=== PATIENT | female | born 1940 | race Caucasian/White ===

== ENCOUNTER 2019-11-18 17:10 | Inpatient (IN) | payer MEDICARE ==
[~2019-11-18] VITALS: Ht 149.9 cm; Wt 49.9 kg
[~2019-11-18 17:10] MED LIST: AMIO100T4 PO; ASPI-1158 PO; FURO-152 PO; HYDR-4009 MT; METO200T48 PO; OMEP20CA14 PO; SIMV10TA97 PO; WARF-67 PO; WARF4TAB71 PO
[2019-11-18 18:14] VITALS: BP 123/63
[2019-11-18] MEDS ORDERED: DEXTROSE 50% WATER 50ML SYRINGE IV PRN (18:15)
[2019-11-18] MEDS ORDERED: HYDROCODONE/ACETAMINOPHEN 5/325MG TABLET PO PRN (18:15)
[2019-11-18] MEDS ORDERED: LACTULOSE 20G/30ML UDC PO PRN (18:15)
[2019-11-18 18:59] VITALS: BP 123/63
[2019-11-18] MEDS ORDERED: WARFARIN SODIUM 4MG TABLET PO SCH (19:30)
[2019-11-18 20:00] VITALS: BP 132/68
[2019-11-18] MEDS: HYDROCODONE/APAP 7.5/325MG 1 TAB TABLET PO PRN (20:17)
[2019-11-18] MEDS: BLOOD SUGAR DIAGNOSTIC STRIP TEST SCH (21:22)
[2019-11-18] MEDS: SOTALOL HCL 80MG TABLET PO SCH (21:23)
[2019-11-18] MEDS: INSULIN LISPRO 100 UNITS/ML SUBCUT SCH (22:00)
[2019-11-18] MEDS: IPRATROPIUM/ALBUTEROL 0.5-3(2.5)MG/3ML NEB HHN SCH (23:56)
[2019-11-19] MEDS: IPRATROPIUM/ALBUTEROL 0.5-3(2.5)MG/3ML NEB HHN SCH ×5 (03:41→20:00)
[2019-11-19] MEDS: BLOOD SUGAR DIAGNOSTIC STRIP TEST SCH ×2 (06:53→11:26)
[2019-11-19] MEDS: INSULIN LISPRO 100 UNITS/ML SUBCUT SCH ×2 (07:00→12:03)
[2019-11-19 08:00] VITALS: BP 117/62
[2019-11-19] MEDS: LACTULOSE 20G/30ML UDC PO SCH (08:30)
[2019-11-19] MEDS: ENOXAPARIN 30MG/0.3ML SYR SUBCUT SCH ×2 (08:31→21:38)
[2019-11-19] MEDS: DOCUSATE SODIUM 250MG CAPSULE PO SCH (08:32)
[2019-11-19] MEDS: HYDROCODONE/APAP 7.5/325MG 1 TAB TABLET PO PRN ×2 (08:32→18:52)
[2019-11-19] MEDS: SOTALOL HCL 80MG TABLET PO SCH ×2 (08:32→21:27)
[2019-11-19] MEDS: FAMOTIDINE 20MG TABLET PO SCH (08:33)
[2019-11-19] MEDS: LIDOCAINE 5% PATCH TOP SCH (08:34)
[2019-11-19 20:00] VITALS: BP 105/80
[2019-11-20] MEDS: HYDROCODONE/APAP 7.5/325MG 1 TAB TABLET PO PRN ×2 (06:15→14:31)
[2019-11-20 07:00] VITALS: BP 140/68
[2019-11-20] MEDS: IPRATROPIUM/ALBUTEROL 0.5-3(2.5)MG/3ML NEB HHN SCH ×3 (07:39→16:00)
[2019-11-20 08:12] LABS: BASOPHILS % 1.3 % (0.0-2.0); HEMATOCRIT. 36.7 % (36.0-48.0); LYMPHOCYTES % 7.5 % (20.0-50.0); MEAN CORPUSCULAR HEMOGLOBIN 28.1 pg (28.0-32.0); MEAN CORPUSCULAR VOLUME 85.8 fL (81.0-99.0); MEAN PLATELET VOLUME 8.6 fl (7.4-10.4); MONOCYTES % 10.9 % (2.0-8.0); NEUTROPHILS % 77.3 % (40.0-76.0); PLATELET 294 x1000/uL (130-400); RED BLOOD CELL COUNT 4.28 mill/uL (4.2-5.4); RED CELL DISTRIBUTION WIDTH 15.4 % (11.6-14.6)
[2019-11-20 08:12] LABS: INR 1.8; PROTHROMBIN TIME 19.6 sec (9.6-11.0)
[2019-11-20] MEDS: SOTALOL HCL 80MG TABLET PO SCH ×2 (08:16→21:28)
[2019-11-20] MEDS: DOCUSATE SODIUM 250MG CAPSULE PO SCH (08:16)
[2019-11-20] MEDS: FAMOTIDINE 20MG TABLET PO SCH (08:17)
[2019-11-20] MEDS: ENOXAPARIN 30MG/0.3ML SYR SUBCUT SCH ×2 (08:17→21:35)
[2019-11-20] MEDS: LACTULOSE 20G/30ML UDC PO SCH (08:18)
[2019-11-20] MEDS: LIDOCAINE 5% PATCH TOP SCH (08:23)
[2019-11-20 08:25] LABS: CHLORIDE 108 mEq/L (98-107)
[2019-11-20 14:25] VITALS: BP 125/75
[2019-11-20] MEDS ORDERED: WARFARIN SODIUM 4MG TABLET PO NR (18:00)
[2019-11-20 20:00] VITALS: BP 132/69
[2019-11-21] MEDS: IPRATROPIUM/ALBUTEROL 0.5-3(2.5)MG/3ML NEB HHN SCH ×6 (04:00→20:00)
[2019-11-21 08:00] VITALS: BP 124/75
[2019-11-21] MEDS: LACTULOSE 20G/30ML UDC PO SCH (08:05)
[2019-11-21] MEDS: SOTALOL HCL 80MG TABLET PO SCH ×2 (08:06→21:00)
[2019-11-21] MEDS: DOCUSATE SODIUM 250MG CAPSULE PO SCH (08:06)
[2019-11-21] MEDS: FAMOTIDINE 20MG TABLET PO SCH (08:06)
[2019-11-21] MEDS: HYDROCODONE/APAP 7.5/325MG 1 TAB TABLET PO PRN ×2 (08:07→15:49)
[2019-11-21] MEDS: ENOXAPARIN 30MG/0.3ML SYR SUBCUT SCH ×2 (08:07→21:04)
[2019-11-21] MEDS: LIDOCAINE 5% PATCH TOP SCH (08:08)
[2019-11-21 10:02] LABS: INR 1.9; PROTHROMBIN TIME 20.6 sec (9.6-11.0)
[2019-11-21] MEDS: CLONIDINE 0.1MG TABLET PO PRN (17:20)
[2019-11-21] MEDS ORDERED: WARFARIN SODIUM 2.5MG TABLET PO NR (18:00)
[2019-11-21] MEDS ORDERED: WARFARIN SODIUM 4MG TABLET PO NR (18:00)
[2019-11-21 20:00] VITALS: BP 92/43
[2019-11-22] MEDS: IPRATROPIUM/ALBUTEROL 0.5-3(2.5)MG/3ML NEB HHN SCH ×6 (00:15→16:00)
[2019-11-22 07:38] LABS: PROTHROMBIN TIME 21.3 sec (9.6-11.0)
[2019-11-22 08:00] VITALS: BP 119/58
[2019-11-22] MEDS: ACETAMINOPHEN 650MG/20.3ML UDC PO PRN (08:27)
[2019-11-22] MEDS: ENOXAPARIN 30MG/0.3ML SYR SUBCUT SCH ×2 (08:28→21:18)
[2019-11-22] MEDS: LIDOCAINE 5% PATCH TOP SCH (08:29)
[2019-11-22] MEDS: DOCUSATE SODIUM 250MG CAPSULE PO SCH (08:29)
[2019-11-22] MEDS: FAMOTIDINE 20MG TABLET PO SCH (08:29)
[2019-11-22] MEDS: SOTALOL HCL 80MG TABLET PO SCH ×2 (08:29→21:00)
[2019-11-22] MEDS: LACTULOSE 20G/30ML UDC PO SCH (09:00)
[2019-11-22] MEDS: HYDROCODONE/APAP 7.5/325MG 1 TAB TABLET PO PRN ×2 (09:49→21:17)
[2019-11-22] MEDS ORDERED: WARFARIN SODIUM 2.5MG TABLET PO SCH (18:00)
[2019-11-22] MEDS ORDERED: WARFARIN SODIUM 1MG TABLET PO SCH (18:00)
[2019-11-22 19:09] LABS: KETONES URINE NEGATIVE (NEGATIVE); LEUKOCYTE ESTERASE URINE 3+ (NEGATIVE); NITRITE URINE NEGATIVE (NEGATIVE); OCCULT BLOOD URINE 2+ (NEGATIVE); PH URINE 5.5 (4.5-8.0); PROTEIN URINE 2+ (NEGATIVE); SPECIFIC GRAVITY URINE 1.015 (1.005-1.030)
[2019-11-22 19:14] LABS: CLARITY URINE CLOUDY (CLEAR); COLOR URINE YELLOW (YELLOW)
[2019-11-22 20:00] VITALS: BP 102/58
[2019-11-23] MEDS: ONDANSETRON HCL 4MG/2ML INJ IV PRN (04:13)
[2019-11-23 04:14] VITALS: BP 173/88
[2019-11-23] MEDS: ACETAMINOPHEN 650MG/20.3ML UDC PO PRN ×2 (04:14→18:51)
[2019-11-23] MEDS: CLONIDINE 0.1MG TABLET PO PRN (04:14)
[2019-11-23 06:54] LABS: INR 2.3; PROTHROMBIN TIME 24.1 sec (9.6-11.0)
[2019-11-23 07:00] VITALS: BP 78/44
[2019-11-23] MEDS: IPRATROPIUM/ALBUTEROL 0.5-3(2.5)MG/3ML NEB HHN SCH ×2 (07:08→15:10)
[2019-11-23 07:15] VITALS: BP 92/46
[2019-11-23] MEDS: LACTULOSE 20G/30ML UDC PO SCH (09:00)
[2019-11-23] MEDS: SOTALOL HCL 80MG TABLET PO SCH ×2 (09:00→21:06)
[2019-11-23] MEDS: DOCUSATE SODIUM 250MG CAPSULE PO SCH (09:09)
[2019-11-23] MEDS: ENOXAPARIN 30MG/0.3ML SYR SUBCUT SCH ×2 (09:10→21:06)
[2019-11-23] MEDS: FAMOTIDINE 20MG TABLET PO SCH (09:10)
[2019-11-23] MEDS: LIDOCAINE 5% PATCH TOP SCH (09:11)
[2019-11-23 11:00] VITALS: BP 108/52
[2019-11-23] MEDS ORDERED: LEVOFLOXACIN 250MG TABLET PO SCH (11:00)
[2019-11-23] MEDS: HYDROCODONE/APAP 7.5/325MG 1 TAB TABLET PO PRN (11:08)
[2019-11-23] MEDS ORDERED: WARFARIN SODIUM 2.5MG TABLET PO SCH (18:00)
[2019-11-23] MEDS ORDERED: WARFARIN SODIUM 1MG TABLET PO SCH (18:00)
[2019-11-23 20:00] VITALS: BP 126/66
[2019-11-24 06:46] LABS: INR 2.5; PROTHROMBIN TIME 26.3 sec (9.6-11.0)
[2019-11-24 06:49] LABS: HEMATOCRIT. 32.9 % (36.0-48.0); HEMOGLOBIN. 10.7 g/dL (12.0-16.0); MEAN CORPUSCULAR HEMOGLOBIN 27.6 pg (28.0-32.0); MEAN CORPUSCULAR VOLUME 84.9 fL (81.0-99.0); MEAN PLATELET VOLUME 9.3 fl (7.4-10.4); PLATELET 204 x1000/uL (130-400); RED BLOOD CELL COUNT 3.88 mill/uL (4.2-5.4); RED CELL DISTRIBUTION WIDTH 15.7 % (11.6-14.6)
[2019-11-24 08:00] VITALS: BP 101/67
[2019-11-24] MEDS: SOTALOL HCL 80MG TABLET PO SCH ×2 (08:15→21:38)
[2019-11-24] MEDS: LACTULOSE 20G/30ML UDC PO SCH (08:15)
[2019-11-24] MEDS: DOCUSATE SODIUM 250MG CAPSULE PO SCH (08:16)
[2019-11-24] MEDS: ENOXAPARIN 30MG/0.3ML SYR SUBCUT SCH (08:16)
[2019-11-24] MEDS: FAMOTIDINE 20MG TABLET PO SCH (08:16)
[2019-11-24] MEDS: LIDOCAINE 5% PATCH TOP SCH (08:18)
[2019-11-24 08:22] LABS: PLATELET ESTIMATE NORMAL
[2019-11-24 09:15] VITALS: BP 153/111
[2019-11-24] MEDS: HYDROCODONE/APAP 7.5/325MG 1 TAB TABLET PO PRN ×2 (09:29→20:20)
[2019-11-24] MEDS: MEROPENEM 1,000 MG in SODIUM CHLORIDE 0.9% 100 ML IV SCH ×2 (12:55→21:40)
[2019-11-24] MEDS ORDERED: LACTULOSE 20G/30ML UDC PO PRN (16:30)
[2019-11-24] MEDS ORDERED: DOCUSATE SODIUM 250MG CAPSULE PO PRN (16:30)
[2019-11-24] MEDS ORDERED: WARFARIN SODIUM 3MG TABLET PO SCH (18:00)
[2019-11-24 20:00] VITALS: BP 158/84
[2019-11-25] MEDS: MEROPENEM 1,000 MG in SODIUM CHLORIDE 0.9% 100 ML IV SCH ×3 (06:22→21:59)
[2019-11-25 06:45] LABS: HEMATOCRIT. 30.6 % (36.0-48.0); HEMOGLOBIN. 10.3 g/dL (12.0-16.0); MEAN CORPUSCULAR HEMOGLOBIN 28.4 pg (28.0-32.0); MEAN CORPUSCULAR VOLUME 84.6 fL (81.0-99.0); MEAN PLATELET VOLUME 9.4 fl (7.4-10.4); PLATELET 230 x1000/uL (130-400); RED BLOOD CELL COUNT 3.62 mill/uL (4.2-5.4); RED CELL DISTRIBUTION WIDTH 15.8 % (11.6-14.6)
[2019-11-25 06:46] LABS: INR 2.6
[2019-11-25 07:03] LABS: CHLORIDE 105 mEq/L (98-107)
[2019-11-25 08:00] VITALS: BP 129/62
[2019-11-25 09:11] LABS: PLATELET ESTIMATE NORMAL
[2019-11-25] MEDS: LIDOCAINE 5% PATCH TOP SCH (10:33)
[2019-11-25] MEDS: ONDANSETRON HCL 4MG/2ML INJ IV PRN (10:35)
[2019-11-25] MEDS: SOTALOL HCL 80MG TABLET PO SCH ×2 (10:41→21:57)
[2019-11-25] MEDS: FAMOTIDINE 20MG TABLET PO SCH (10:42)
[2019-11-25] MEDS: HYDROCODONE/APAP 7.5/325MG 1 TAB TABLET PO PRN ×2 (11:24→21:59)
[2019-11-25 13:46] LABS: PROTHROMBIN TIME 21.2 sec (9.6-11.0)
[2019-11-25] MEDS ORDERED: WARFARIN SODIUM 3MG TABLET PO SCH (18:00)
[2019-11-25 20:00] VITALS: BP 144/72
[2019-11-26] MEDS: MEROPENEM 1,000 MG in SODIUM CHLORIDE 0.9% 100 ML IV SCH ×3 (06:08→21:39)
[2019-11-26 06:53] LABS: HEMOGLOBIN. 10.2 g/dL (12.0-16.0); MEAN CORPUSCULAR HEMOGLOBIN 27.9 pg (28.0-32.0); MEAN CORPUSCULAR VOLUME 85.2 fL (81.0-99.0); MEAN PLATELET VOLUME 9.8 fl (7.4-10.4); PLATELET 246 x1000/uL (130-400); RED BLOOD CELL COUNT 3.64 mill/uL (4.2-5.4); RED CELL DISTRIBUTION WIDTH 15.8 % (11.6-14.6)
[2019-11-26 07:00] VITALS: BP 120/63
[2019-11-26 07:00] LABS: CHLORIDE 107 mEq/L (98-107)
[2019-11-26 07:06] LABS: INR 1.9; PROTHROMBIN TIME 20.5 sec (9.6-11.0)
[2019-11-26] MEDS: FAMOTIDINE 20MG TABLET PO SCH (08:31)
[2019-11-26] MEDS: SOTALOL HCL 80MG TABLET PO SCH ×2 (08:32→20:48)
[2019-11-26] MEDS: LIDOCAINE 5% PATCH TOP SCH (08:33)
[2019-11-26 08:57] LABS: PLATELET ESTIMATE NORMAL
[2019-11-26 11:55] VITALS: BP 107/50
[2019-11-26 11:59] VITALS: BP 107/50
[2019-11-26] MEDS: HYDROCODONE/APAP 7.5/325MG 1 TAB TABLET PO PRN ×2 (12:01→20:48)
[2019-11-26 13:30] LABS: INR 1.9
[2019-11-26] MEDS ORDERED: WARFARIN SODIUM 4MG TABLET PO NR (18:00)
[2019-11-26 20:00] VITALS: BP 123/47
[2019-11-27] MEDS: MEROPENEM 1,000 MG in SODIUM CHLORIDE 0.9% 100 ML IV SCH (05:04)
[2019-11-27 06:45] LABS: INR 2.4; PROTHROMBIN TIME 25.4 sec (9.6-11.0)
[2019-11-27 08:00] VITALS: BP 103/41
[2019-11-27] MEDS: SOTALOL HCL 80MG TABLET PO SCH ×2 (08:49→20:10)
[2019-11-27] MEDS: LIDOCAINE 5% PATCH TOP SCH (08:49)
[2019-11-27] MEDS: HYDROCODONE/APAP 7.5/325MG 1 TAB TABLET PO PRN ×2 (08:50→20:11)
[2019-11-27] MEDS: FAMOTIDINE 20MG TABLET PO SCH (09:00)
[2019-11-27] MEDS: MEROPENEM-0.9% SODIUM CHLORIDE 50 ML IV SCH ×2 (14:48→21:53)
[2019-11-27] MEDS ORDERED: WARFARIN SODIUM 1MG TABLET PO SCH (18:00)
[2019-11-27] MEDS ORDERED: WARFARIN SODIUM 2.5MG TABLET PO SCH (18:00)
[2019-11-27 20:00] VITALS: BP 133/78
[2019-11-28] MEDS: MEROPENEM-0.9% SODIUM CHLORIDE 50 ML IV SCH ×3 (06:31→21:35)
[2019-11-28] MEDS: SOTALOL HCL 80MG TABLET PO SCH ×2 (08:02→21:35)
[2019-11-28] MEDS: LIDOCAINE 5% PATCH TOP SCH (08:02)
[2019-11-28] MEDS: HYDROCODONE/APAP 7.5/325MG 1 TAB TABLET PO PRN ×2 (08:03→13:52)
[2019-11-28 08:19] VITALS: BP 114/62
[2019-11-28] MEDS ORDERED: FAMOTIDINE 40MG TABLET PO SCH ×2 (09:00→21:45)
[2019-11-28 09:04] LABS: BASOPHILS % 0.5 % (0.0-2.0); EOSINOPHILS % 2.4 % (0.0-5.0); HEMATOCRIT. 34.2 % (36.0-48.0); HEMOGLOBIN. 11.3 g/dL (12.0-16.0); LYMPHOCYTES % 7.7 % (20.0-50.0); MEAN CORPUSCULAR HEMOGLOBIN 28.2 pg (28.0-32.0); MEAN CORPUSCULAR VOLUME 85.5 fL (81.0-99.0); MEAN PLATELET VOLUME 9.1 fl (7.4-10.4); MONOCYTES % 10.5 % (2.0-8.0); NEUTROPHILS % 78.9 % (40.0-76.0); PLATELET 317 x1000/uL (130-400); RED BLOOD CELL COUNT 3.99 mill/uL (4.2-5.4)
[2019-11-28 09:10] LABS: INR 2.4; PROTHROMBIN TIME 25.5 sec (9.6-11.0)
[2019-11-28 09:14] LABS: CHLORIDE 103 mEq/L (98-107)
[2019-11-28] MEDS: ACYCLOVIR 5% OINTMENT TOP SCH ×2 (13:36→17:00)
[2019-11-28] MEDS ORDERED: WARFARIN SODIUM 1MG TABLET PO SCH (18:00)
[2019-11-28] MEDS ORDERED: WARFARIN SODIUM 2.5MG TABLET PO SCH (18:00)
[2019-11-28 20:00] VITALS: BP 119/66
[2019-11-28] MEDS ORDERED: FAMOTIDINE 20MG TABLET PO ONE (21:00)
[2019-11-29] MEDS: MEROPENEM-0.9% SODIUM CHLORIDE 50 ML IV SCH ×3 (05:45→22:06)
[2019-11-29 07:19] LABS: INR 2.4; PROTHROMBIN TIME 25.2 sec (9.6-11.0)
[2019-11-29] MEDS: FAMOTIDINE 40MG TABLET PO SCH (08:11)
[2019-11-29] MEDS: ACYCLOVIR 5% OINTMENT TOP SCH ×3 (08:11→17:19)
[2019-11-29] MEDS: SOTALOL HCL 80MG TABLET PO SCH ×2 (08:12→21:00)
[2019-11-29] MEDS: HYDROCODONE/APAP 7.5/325MG 1 TAB TABLET PO PRN (08:13)
[2019-11-29] MEDS: LIDOCAINE 5% PATCH TOP SCH (08:16)
[2019-11-29 08:24] VITALS: BP 107/65
[2019-11-29] MEDS ORDERED: SOTA80TA25 PO (09:05)
[2019-11-29] MEDS ORDERED: LACT10SO7 PO (09:05)
[2019-11-29] MEDS ORDERED: DOCU250C14 PO (09:05)
[2019-11-29] MEDS ORDERED: FAMO40TA7 PO (09:05)
[2019-11-29] MEDS ORDERED: ONDA4VIA22 IV (09:05)
[2019-11-29] MEDS ORDERED: LIDO700A30 TOP (09:05)
[2019-11-29] MEDS ORDERED: WARFARIN SODIUM 1MG TABLET PO SCH (18:00)
[2019-11-29] MEDS ORDERED: WARFARIN SODIUM 2.5MG TABLET PO SCH (18:00)
[2019-11-29 20:00] VITALS: BP 100/58
[2019-11-29] MEDS: ACETAMINOPHEN 650MG/20.3ML UDC PO PRN (22:39)
[2019-11-30] VITALS: BP 108/69
[2019-11-30 06:26] LABS: BASOPHILS % 1.4 % (0.0-2.0); EOSINOPHILS % 3.5 % (0.0-5.0); HEMATOCRIT. 31.9 % (36.0-48.0); HEMOGLOBIN. 10.6 g/dL (12.0-16.0); LYMPHOCYTES % 11.1 % (20.0-50.0); MEAN CORPUSCULAR HEMOGLOBIN 28.2 pg (28.0-32.0); MEAN PLATELET VOLUME 9.3 fl (7.4-10.4); MONOCYTES % 13.6 % (2.0-8.0); NEUTROPHILS % 70.4 % (40.0-76.0); PLATELET 348 x1000/uL (130-400); RED BLOOD CELL COUNT 3.75 mill/uL (4.2-5.4)
[2019-11-30 06:31] LABS: INR 2.4; PROTHROMBIN TIME 25.1 sec (9.6-11.0)
[2019-11-30 06:35] LABS: CHLORIDE 107 mEq/L (98-107)
[2019-11-30 07:47] VITALS: BP 108/50
[2019-11-30] MEDS: LIDOCAINE 5% PATCH TOP SCH (08:29)
[2019-11-30] MEDS: FAMOTIDINE 40MG TABLET PO SCH (08:29)
[2019-11-30] MEDS: SOTALOL HCL 80MG TABLET PO SCH (08:29)
[2019-11-30] MEDS: ACYCLOVIR 5% OINTMENT TOP SCH ×2 (08:42→12:29)
[2019-11-30] MEDS: HYDROCODONE/APAP 7.5/325MG 1 TAB TABLET PO PRN ×2 (09:03→15:59)
[2019-11-30 09:28] VITALS: BP 108/50
[2019-11-30 15:59] VITALS: BP 124/67
== END 2019-11-30 16:48 | disposition home health service (06) | DRG 308 ==
PROVIDERS: ADMIT Psychiatry & Neurology Neurology; ATTEND Internal Medicine Geriatric Medicine
DX: I48.20 Chronic atrial fibrillation, unspecified (principal); N17.0 Acute kidney failure with tubular necrosis; E44.0 Moderate protein-calorie malnutrition; E87.1 Hypo-osmolality and hyponatremia; I13.0 Hypertensive heart and chronic kidney disease with heart failure and stage 1 through stage 4 chronic kidney disease, or unspecified chronic kidney disease; I49.5 Sick sinus syndrome; Z95.0 Presence of cardiac pacemaker; M81.0 Age-related osteoporosis without current pathological fracture; Z95.2 Presence of prosthetic heart valve; N20.0 Calculus of kidney; I73.9 Peripheral vascular disease, unspecified; I83.90 Asymptomatic varicose veins of unspecified lower extremity; I95.9 Hypotension, unspecified; K56.41 Fecal impaction; Z87.440 Personal history of urinary (tract) infections; E78.5 Hyperlipidemia, unspecified; G89.29 Other chronic pain; I36.1 Nonrheumatic tricuspid (valve) insufficiency; I50.9 Heart failure, unspecified; N18.9 Chronic kidney disease, unspecified; Z79.01 Long term (current) use of anticoagulants; K82.9 Disease of gallbladder, unspecified; I35.0 Nonrheumatic aortic (valve) stenosis
CPT/HCPCS: 36415; 71045; 80048; 80053; 80076; 81003; 82248; 82962; 85025; 87077; 87186; 93005; 97110; 97116; 97162; 97166; 97530; 97535; J1650; J2185; J2405; J7050

== ENCOUNTER 2020-05-18 05:00 | Emergency (ER) | payer MEDICARE, OTHER ==
[~2020-05-18] VITALS: Ht 149.9 cm; Wt 50.0 kg
[~2020-05-18 05:00] MED LIST changes: -AMIO100T4 PO; -ASPI-1158 PO; +DOCU250C14 PO; +FAMO40TA7 PO; -FURO-152 PO; -HYDR-4009 MT; +LACT10SO7 PO; +LIDO700A30 TOP; -METO200T48 PO; -OMEP20CA14 PO; +ONDA4VIA22 IV; +SOTA80TA25 PO; -WARF-67 PO; -WARF4TAB71 PO
[2020-05-18 06:16] LABS: BASOPHILS % 0.6 % (0.0-2.0); EOSINOPHILS % 3.1 % (0.0-5.0); HEMATOCRIT. 32.4 % (36.0-48.0); HEMOGLOBIN. 9.8 g/dL (12.0-16.0); LYMPHOCYTES % 11.2 % (20.0-50.0); MEAN CORPUSCULAR HEMOGLOBIN 21.3 pg (28.0-32.0); MEAN CORPUSCULAR VOLUME 70.5 fL (81.0-99.0); MEAN PLATELET VOLUME 8.8 fl (7.4-10.4); MONOCYTES % 11.7 % (2.0-8.0); NEUTROPHILS % 73.4 % (40.0-76.0); PLATELET 256 x1000/uL (130-400); RED CELL DISTRIBUTION WIDTH 21.7 % (11.6-14.6)
[2020-05-18 06:26] LABS: CHLORIDE 108 mEq/L (98-107)
[2020-05-18 06:28] LABS: PARTIAL THROMBOPLASTIN TIME 46.3 sec (23.4-31.0)
[2020-05-18] MEDS ORDERED: TRANEXAMIC ACID 1,000 MG/10 ML TP ONE (06:30)
[2020-05-18 06:39] LABS: INR 4.6
[2020-05-18] MEDS ORDERED: ONDANSETRON HCL 4MG/2ML INJ IV ONE (06:45)
[2020-05-18] MEDS ORDERED: CEFAZOLIN 1000MG PREMIX 50 ML IV ONE (06:45)
[2020-05-18] MEDS ORDERED: MORPHINE SULFATE 2 MG/ML CPJ (NOT FOR IM USE) IV ONE (06:45)
[2020-05-18] MEDS ORDERED: ACETAMINOPHEN 650MG SUPP PR ONE (07:00)
[2020-05-18 10:04] LABS: HEMATOCRIT 28.4 % (36.0-48.0); HEMOGLOBIN 8.9 g/dL (12.0-16.0); MEAN CORPUSCULAR VOLUME 70.5 fL (81.0-99.0); PLATELET 215 x1000/uL (130-400); RED BLOOD CELL COUNT 4.03 mill/uL (4.2-5.4); RED CELL DISTRIBUTION WIDTH 21.7 % (11.6-14.6)
[2020-05-18 10:14] LABS: INR 2.2; PARTIAL THROMBOPLASTIN TIME 39.6 sec (23.4-31.0); PROTHROMBIN TIME 21.8 sec (9.6-11.0)
[2020-05-18] MEDS ORDERED: ENALAPRIL 2.5MG/2ML VIAL 2ML IV ONE (10:15)
[2020-05-18 15:14] VITALS: BP 173/83
== END 2020-05-18 15:46 | disposition short-term general hospital (02) ==
LOC: ER 05:00 → CANBEDREQ 16:17
DX: R04.0 Epistaxis (principal); D68.9 Coagulation defect, unspecified; D64.9 Anemia, unspecified; I10 Essential (primary) hypertension; I48.91 Unspecified atrial fibrillation; Z79.01 Long term (current) use of anticoagulants; Z95.0 Presence of cardiac pacemaker; Z79.82 Long term (current) use of aspirin; Z79.899 Other long term (current) drug therapy
CPT/HCPCS: 30901; 36415; 80048; 85025; 85027; 85610; 85730; 86850; 86900; 86901; 86927; 93005; 96374; 96375; 99285; J0690; J2270; J2405; J3490; 96365; P9017

== ENCOUNTER 2021-05-30 04:23 | Inpatient (IN) | payer MEDICARE, OTHER ==
[~2021-05-30] VITALS: Ht 152.4 cm; Wt 42.2 kg
[2021-05-30] MEDS ORDERED: SODIUM CHLORIDE 0.9% 1,000 ML IV ONE (04:30)
[2021-05-30] MEDS ORDERED: VANCOMYCIN 1 G PREMIX 200 ML IV SCH (04:45)
[2021-05-30] MEDS ORDERED: PIPERACILLIN/TAZOBACTAM 3.375GM/50ML PREMIX IV SCH (04:45)
[2021-05-30 04:50] LABS: HEMATOCRIT. 27.5 % (36.0-48.0); HEMOGLOBIN. 8.4 g/dL (12.0-16.0); MEAN CORPUSCULAR HEMOGLOBIN 27.1 pg (28.0-32.0); MEAN CORPUSCULAR VOLUME 88.5 fL (81.0-99.0); MEAN PLATELET VOLUME 8.7 fl (7.4-10.4); PLATELET 211 x1000/uL (130-400); RED BLOOD CELL COUNT 3.11 mill/uL (4.2-5.4); RED CELL DISTRIBUTION WIDTH 22.7 % (11.6-14.6)
[2021-05-30 04:58] LABS: CHLORIDE 104 mEq/L (98-107)
[2021-05-30 05:01] LABS: INR 3.6; PARTIAL THROMBOPLASTIN TIME 48.1 sec (23.4-31.0); PROTHROMBIN TIME 34.6 sec (9.6-11.0)
[2021-05-30] MEDS ORDERED: CALCIUM GLUCONATE 100MG/ML 10ML VIAL IV SCH (05:30)
[2021-05-30 05:41] LABS: PLATELET ESTIMATE NORMAL
[2021-05-30] MEDS ORDERED: PHYTONADIONE 10 MG in DEXTROSE 5% WATER 50 ML SUBCUT SCH (06:00)
[2021-05-30] MEDS ORDERED: PHYTONADIONE 10MG/ML AMP ONE (06:17)
[2021-05-30 06:32] LABS: CLARITY URINE CLEAR (CLEAR); COLOR URINE DARK YELLOW (YELLOW); KETONES URINE TRACE (NEGATIVE); LEUKOCYTE ESTERASE URINE NEGATIVE (NEGATIVE); NITRITE URINE NEGATIVE (NEGATIVE); OCCULT BLOOD URINE NEGATIVE (NEGATIVE); PH URINE 5.5 (4.5-8.0); PROTEIN URINE 1+ (NEGATIVE); SPECIFIC GRAVITY URINE 1.023 (1.005-1.030)
[2021-05-30] MEDS ORDERED: IOHEXOL-300 100 ML BOTTLE ONE (07:00)
[2021-05-30] MEDS ORDERED: ACETAMINOPHEN 325MG TABLET PO NR (08:30)
[2021-05-30] MEDS ORDERED: CEFTRIAXONE 1 G PREMIX 50 ML IV SCH (08:30)
[2021-05-30] MEDS ORDERED: NITROGLYCERIN 0.4MG TABLET SL SL PRN (09:00)
[2021-05-30] MEDS ORDERED: LACTULOSE 20G/30ML UDC PO SCH (09:00)
[2021-05-30 09:11] LABS: HEMATOCRIT. 29.3 % (36.0-48.0); HEMOGLOBIN. 9.6 g/dL (12.0-16.0); MEAN CORPUSCULAR HEMOGLOBIN 28.3 pg (28.0-32.0); MEAN CORPUSCULAR VOLUME 86.3 fL (81.0-99.0); MEAN PLATELET VOLUME 8.5 fl (7.4-10.4); PLATELET 151 x1000/uL (130-400); RED BLOOD CELL COUNT 3.39 mill/uL (4.2-5.4); RED CELL DISTRIBUTION WIDTH 20.2 % (11.6-14.6)
[2021-05-30 11:43] LABS: PLATELET ESTIMATE NORMAL
[2021-05-30] MEDS: LACTULOSE 20G/30ML UDC PO SCH (14:00)
[2021-05-30] MEDS ORDERED: THROMBIN (BOVINE) 5000 UNITS/VIAL TOP NR (14:30)
[2021-05-30] MEDS ORDERED: LIDOCAINE HCL 1% 20ML VIAL (Pyxis) INJ ONE (15:07)
[2021-05-30] MEDS ORDERED: PIPERACILLIN/TAZOBACTAM 3.375 G in DEXTROSE 5% WATER 50 ML IV SCH (21:00)
[2021-05-30] MEDS: HYDROCODONE/ACETAMINOPHEN 5/325MG TABLET PO PRN (21:26)
[2021-05-31] VITALS (25 sets, daily range): BP systolic 56–140; BP diastolic 25–90
[2021-05-31] MEDS: HYDROCODONE/ACETAMINOPHEN 5/325MG TABLET PO PRN (03:46)
[2021-05-31] MEDS: LACTULOSE 20G/30ML UDC PO SCH ×3 (06:00→22:21)
[2021-05-31] MEDS ORDERED: LIDOCAINE HCL 1% 20ML VIAL (Pyxis) INJ ONE ×2 (08:21→09:52)
[2021-05-31 09:00] LABS: CHLORIDE 103 mEq/L (98-107)
[2021-05-31 09:06] LABS: PHOSPHORUS 2.5 mg/dL (2.5-4.9)
[2021-05-31 09:09] LABS: HEMATOCRIT. 28.8 % (36.0-48.0); HEMOGLOBIN. 9.2 g/dL (12.0-16.0); MEAN CORPUSCULAR HEMOGLOBIN 28.1 pg (28.0-32.0); MEAN CORPUSCULAR VOLUME 88.2 fL (81.0-99.0); MEAN PLATELET VOLUME 8.7 fl (7.4-10.4); PLATELET 185 x1000/uL (130-400); RED BLOOD CELL COUNT 3.27 mill/uL (4.2-5.4); RED CELL DISTRIBUTION WIDTH 20.2 % (11.6-14.6)
[2021-05-31 09:10] LABS: T4 FREE 1.28 ng/dL (0.76-1.46)
[2021-05-31 09:40] LABS: INR 1.3; PARTIAL THROMBOPLASTIN TIME 39.1 sec (23.4-31.0); PROTHROMBIN TIME 14.1 sec (9.6-11.0)
[2021-05-31] MEDS ORDERED: HEPARIN SODIUM 1,000 UNIT/1ML VIAL IV ONE (09:52)
[2021-05-31] MEDS ORDERED: BUPIVACAINE HCL 0.5% (5MG/ML) 50ML ONE (09:53)
[2021-05-31] MEDS ORDERED: POLYMYXIN B SULFATE 500000 UNITS/VIAL ONE (09:53)
[2021-05-31] MEDS ORDERED: THROMBIN (BOVINE) 5000 UNITS/VIAL TOP ONE (09:53)
[2021-05-31] MEDS ORDERED: PHYTONADIONE 10MG/ML AMP SUBCUT NR (10:00)
[2021-05-31] MEDS ORDERED: HYDROMORPHONE HCL/PF 2MG/ML CPJ IV PRN (10:15)
[2021-05-31] MEDS ORDERED: LABETALOL 5MG/ML SYR 20 MG/4 ML SYRINGE IV PRN (10:15)
[2021-05-31] MEDS ORDERED: MEPERIDINE HCL/PF 25MG/ML CPJ IV PRN (10:15)
[2021-05-31] MEDS ORDERED: ONDANSETRON HCL 4MG/2ML INJ IV PRN (10:15)
[2021-05-31] MEDS ORDERED: ALBUMIN HUMAN 25GM/100ML (25%) IV ONE (10:42)
[2021-05-31] MEDS ORDERED: CALCIUM CHLORIDE 1GM/10ML SYR IV ONE (10:42)
[2021-05-31 10:47] LABS: PLATELET ESTIMATE NORMAL
[2021-05-31] MEDS ORDERED: HYDROMORPHONE HCL/PF 2MG/ML (OR) ONE (10:54)
[2021-05-31] MEDS ORDERED: DEXAMETHASONE 4MG/ML 1ML VIAL ONE (10:56)
[2021-05-31] MEDS ORDERED: CEFAZOLIN SODIUM 1000MG/VIAL ONE (10:57)
[2021-05-31] MEDS ORDERED: BACITRACIN 15GM TUBE TOP ONE (11:40)
[2021-05-31] MEDS ORDERED: METOPROLOL TARTRATE 5MG/5ML VIAL IV ONE (11:48)
[2021-05-31 13:10] LABS: HEMATOCRIT. 29.6 % (36.0-48.0); HEMOGLOBIN. 9.8 g/dL (12.0-16.0); MEAN CORPUSCULAR HEMOGLOBIN 29.1 pg (28.0-32.0); MEAN CORPUSCULAR VOLUME 88.5 fL (81.0-99.0); MEAN PLATELET VOLUME 8.5 fl (7.4-10.4); PLATELET 150 x1000/uL (130-400); RED BLOOD CELL COUNT 3.35 mill/uL (4.2-5.4); RED CELL DISTRIBUTION WIDTH 19.1 % (11.6-14.6)
[2021-05-31 13:19] LABS: INR 1.4; PARTIAL THROMBOPLASTIN TIME 45.5 sec (23.4-31.0); PROTHROMBIN TIME 14.4 sec (9.6-11.0)
[2021-05-31 13:23] LABS: CHLORIDE 105 mEq/L (98-107)
[2021-05-31] MEDS ORDERED: CEFEPIME 1,000 MG in DEXTROSE 5% WATER 50 ML IV SCH (13:30)
[2021-05-31] MEDS: FAMOTIDINE 20MG/2ML VIAL IV SCH (13:32)
[2021-05-31] MEDS: PIPERACILLIN/TAZOBACTAM 3.375 G in DEXTROSE 5% WATER 50 ML IV SCH ×2 (13:38→22:21)
[2021-05-31 14:30] LABS: PLATELET ESTIMATE NORMAL
[2021-05-31 15:15] LABS: BG BASE EXCESS -2.4 mmol/L (-2.0-2.0); BG FRACTION INSPIRED OXYGEN 21; BG HCO3 ACT 23.5 mmol/L (22.0-26.0); BG OXYGEN SATURATION 58.6 % (92.0-98.5); BG PCO2 45.3 mmHg (35.0-45.0); BG PH 7.333 (7.350-7.450); BG PO2 31.2 mmHg (75.0-100.0); BG SAMPLE SITE VBG - N/A; BG TOTAL HEMOGLOBIN 10.9 g/dL (12.0-18.0); BG VENT MODE ROOM AIR
[2021-05-31] MEDS: MEROPENEM 1000MG in NORMAL SALINE 100ML IV SCH ×2 (15:15→22:21)
[2021-05-31] MEDS ORDERED: VANCOMYCIN 500 MG PREMIX 100 ML IV SCH (15:30)
[2021-06-01] VITALS (24 sets, daily range): BP systolic 100–143; BP diastolic 34–99
[2021-06-01 04:17] LABS: HEMATOCRIT. 27.5 % (36.0-48.0); HEMOGLOBIN. 9.5 g/dL (12.0-16.0); MEAN CORPUSCULAR HEMOGLOBIN 29.5 pg (28.0-32.0); MEAN CORPUSCULAR VOLUME 85.4 fL (81.0-99.0); MEAN PLATELET VOLUME 8.5 fl (7.4-10.4); PLATELET 130 x1000/uL (130-400); RED BLOOD CELL COUNT 3.22 mill/uL (4.2-5.4); RED CELL DISTRIBUTION WIDTH 18.9 % (11.6-14.6)
[2021-06-01 04:18] LABS: CHLORIDE 105 mEq/L (98-107)
[2021-06-01 04:22] LABS: INR 1.2; PROTHROMBIN TIME 13.1 sec (9.6-11.0)
[2021-06-01] MEDS: LACTULOSE 20G/30ML UDC PO SCH (06:31)
[2021-06-01] MEDS: PIPERACILLIN/TAZOBACTAM 3.375 G in DEXTROSE 5% WATER 50 ML IV SCH (06:47)
[2021-06-01] MEDS ORDERED: ENOXAPARIN 40MG/0.4ML SYR SUBCUT SCH (09:13)
[2021-06-01] MEDS: FUROSEMIDE 40MG/4ML VIAL IVP SCH ×2 (10:24→17:19)
[2021-06-01] MEDS: MEROPENEM 1000MG in NORMAL SALINE 100ML IV SCH ×2 (10:24→19:59)
[2021-06-01] MEDS: FAMOTIDINE 20MG/2ML VIAL IV SCH (10:24)
[2021-06-01] MEDS: VANCOMYCIN 750 MG PREMIX 150 ML IV SCH (10:27)
[2021-06-01 11:59] LABS: PLATELET ESTIMATE NORMAL
[2021-06-01] MEDS ORDERED: ENOXAPARIN 60MG/0.6ML SYR SUBCUT NR (12:30)
[2021-06-01] MEDS ORDERED: AMIKACIN SULFATE 350 MG in SODIUM CHLORIDE 0.9% 100 ML IV NR (16:00)
[2021-06-01] MEDS: SOTALOL HCL 80MG TABLET PO SCH (17:19)
[2021-06-01] MEDS: POTASSIUM CHLORIDE 20MEQ TABLET SR PO SCH (17:19)
[2021-06-01] MEDS: HYDROCODONE/ACETAMINOPHEN 5/325MG TABLET PO PRN (17:43)
[2021-06-02] VITALS (24 sets, daily range): BP systolic 97–153; BP diastolic 52–96
[2021-06-02 02:25] LABS: HEMATOCRIT. 28.2 % (36.0-48.0); HEMOGLOBIN. 9.3 g/dL (12.0-16.0); MEAN CORPUSCULAR HEMOGLOBIN 29.2 pg (28.0-32.0); MEAN CORPUSCULAR VOLUME 88.4 fL (81.0-99.0); MEAN PLATELET VOLUME 8.7 fl (7.4-10.4); PLATELET 149 x1000/uL (130-400); RED BLOOD CELL COUNT 3.19 mill/uL (4.2-5.4); RED CELL DISTRIBUTION WIDTH 19.3 % (11.6-14.6)
[2021-06-02 02:26] LABS: INR 1.2; PROTHROMBIN TIME 12.4 sec (9.6-11.0)
[2021-06-02 02:27] LABS: CHLORIDE 103 mEq/L (98-107)
[2021-06-02 02:35] LABS: PHOSPHORUS 2.2 mg/dL (2.5-4.9)
[2021-06-02] MEDS: VANCOMYCIN 750 MG PREMIX 150 ML IV SCH ×2 (03:04→21:20)
[2021-06-02 05:29] LABS: PLATELET ESTIMATE NORMAL
[2021-06-02 06:12] LABS: HEMATOCRIT. 28.2 % (36.0-48.0); HEMOGLOBIN. 9.4 g/dL (12.0-16.0); MEAN CORPUSCULAR HEMOGLOBIN 28.8 pg (28.0-32.0); MEAN CORPUSCULAR VOLUME 86.5 fL (81.0-99.0); MEAN PLATELET VOLUME 8.5 fl (7.4-10.4); PLATELET 149 x1000/uL (130-400); RED BLOOD CELL COUNT 3.26 mill/uL (4.2-5.4); RED CELL DISTRIBUTION WIDTH 19.6 % (11.6-14.6)
[2021-06-02 06:24] LABS: CHLORIDE 103 mEq/L (98-107)
[2021-06-02] MEDS: MEROPENEM 1000MG in NORMAL SALINE 100ML IV SCH (08:30)
[2021-06-02] MEDS: SOTALOL HCL 80MG TABLET PO SCH ×2 (08:31→17:39)
[2021-06-02] MEDS: POTASSIUM CHLORIDE 20MEQ TABLET SR PO SCH ×2 (08:31→17:38)
[2021-06-02] MEDS: FAMOTIDINE 20MG/2ML VIAL IV SCH (08:31)
[2021-06-02] MEDS: FUROSEMIDE 40MG/4ML VIAL IVP SCH ×2 (08:31→17:39)
[2021-06-02] MEDS ORDERED: BENZONATATE 100MG CAPSULE PO NR (09:15)
[2021-06-02] MEDS ORDERED: NALOXONE HCL 0.4MG/ML VIAL IV PRN (09:30)
[2021-06-02] MEDS ORDERED: METOPROLOL TARTRATE 25MG TABLET PO SCH (10:00)
[2021-06-02] MEDS ORDERED: SODIUM PHOS,M-BASIC-D-BASIC 15 MM in DEXT 5% WATER 245 ML IV SCH (11:00)
[2021-06-02] MEDS ORDERED: SOTALOL HCL 80MG TABLET PO NR (11:00)
[2021-06-02] MEDS ORDERED: METOPROLOL SUCCINATE 50MG ER TABLET PO SCH (11:00)
[2021-06-02 11:46] LABS: PLATELET ESTIMATE NORMAL
[2021-06-02] MEDS: ENOXAPARIN 40MG/0.4ML SYR SUBCUT SCH (11:49)
[2021-06-02 12:11] LABS: PHOSPHORUS 2.3 mg/dL (2.5-4.9)
[2021-06-02] MEDS ORDERED: CEFTAZIDIME PENTAHYDRATE 2 G in DEXT 5% WATER 100 ML IV SCH (12:30)
[2021-06-02 13:37] LABS: CLARITY URINE CLEAR (CLEAR); COLOR URINE YELLOW (YELLOW); KETONES URINE NEGATIVE (NEGATIVE); LEUKOCYTE ESTERASE URINE NEGATIVE (NEGATIVE); NITRITE URINE NEGATIVE (NEGATIVE); OCCULT BLOOD URINE 1+ (NEGATIVE); PH URINE 6.5 (4.5-8.0); PROTEIN URINE NEGATIVE (NEGATIVE); SPECIFIC GRAVITY URINE 1.008 (1.005-1.030)
[2021-06-02 13:43] LABS: HEPATITIS B SURFACE ANTIGEN NEGATIVE
[2021-06-02] MEDS ORDERED: GENTAMICIN 120MG PREMIX 100 ML IV SCH (14:00)
[2021-06-02] MEDS: CEFTAZIDIME PENTAHYDRATE 2 G in DEXT 5% WATER 100 ML IV SCH ×2 (15:29→21:21)
[2021-06-02] MEDS: ACETAMINOPHEN 325MG TABLET PO PRN (15:31)
[2021-06-02] MEDS: HYDROCODONE/ACETAMINOPHEN 5/325MG TABLET PO PRN ×2 (15:44→23:23)
[2021-06-02] MEDS: WARFARIN SODIUM 5MG TABLET PO SCH (17:39)
[2021-06-02] MEDS: BENZONATATE 100MG CAPSULE PO PRN (21:21)
[2021-06-03] VITALS (18 sets, daily range): BP systolic 88–139; BP diastolic 56–79
[2021-06-03] MEDS: ACETAMINOPHEN 325MG TABLET PO PRN ×2 (05:36→20:37)
[2021-06-03 05:51] LABS: HEMATOCRIT. 28.7 % (36.0-48.0); HEMOGLOBIN. 9.7 g/dL (12.0-16.0); MEAN CORPUSCULAR HEMOGLOBIN 29.3 pg (28.0-32.0); MEAN PLATELET VOLUME 8.5 fl (7.4-10.4); PLATELET 175 x1000/uL (130-400); RED CELL DISTRIBUTION WIDTH 19.7 % (11.6-14.6)
[2021-06-03 05:54] LABS: CHLORIDE 100 mEq/L (98-107)
[2021-06-03 05:57] LABS: INR 1.2; PROTHROMBIN TIME 12.9 sec (9.6-11.0)
[2021-06-03] MEDS: FUROSEMIDE 40MG/4ML VIAL IVP SCH (08:56)
[2021-06-03] MEDS: FAMOTIDINE 20MG/2ML VIAL IV SCH (08:57)
[2021-06-03] MEDS: SOTALOL HCL 80MG TABLET PO SCH ×2 (08:58→17:00)
[2021-06-03] MEDS: ENOXAPARIN 40MG/0.4ML SYR SUBCUT SCH (08:59)
[2021-06-03] MEDS ORDERED: METOPROLOL SUCCINATE 50MG ER TABLET PO SCH (09:00)
[2021-06-03] MEDS ORDERED: POTASSIUM CHLORIDE 20MEQ TABLET SR PO SCH (09:00)
[2021-06-03 09:01] LABS: PLATELET ESTIMATE NORMAL
[2021-06-03] MEDS: CEFTAZIDIME PENTAHYDRATE 2 G in DEXT 5% WATER 100 ML IV SCH ×2 (09:03→20:37)
[2021-06-03] MEDS: BENZONATATE 100MG CAPSULE PO PRN (09:27)
[2021-06-03 10:05] LABS: TOTAL IRON BINDING CAPACITY 259 ug/dL (250-450)
[2021-06-03 10:09] LABS: ANTI-NUCLEAR ANTIBODIES DIRECT Positive (Negative)
[2021-06-03] MEDS: GENTAMICIN 80MG PREMIX 100 ML IV SCH (13:35)
[2021-06-03] MEDS: VANCOMYCIN 750 MG PREMIX 150 ML IV SCH (15:55)
[2021-06-03] MEDS: FERROUS SULFATE 325MG TABLET PO SCH (17:47)
[2021-06-03] MEDS: WARFARIN SODIUM 5MG TABLET PO SCH (17:47)
[2021-06-04] VITALS (23 sets, daily range): BP systolic 90–130; BP diastolic 47–84
[2021-06-04 06:46] LABS: HEMATOCRIT. 31.2 % (36.0-48.0); HEMOGLOBIN. 10.3 g/dL (12.0-16.0); MEAN CORPUSCULAR VOLUME 88.1 fL (81.0-99.0); MEAN PLATELET VOLUME 8.5 fl (7.4-10.4); PLATELET 189 x1000/uL (130-400); RED BLOOD CELL COUNT 3.54 mill/uL (4.2-5.4); RED CELL DISTRIBUTION WIDTH 20.2 % (11.6-14.6)
[2021-06-04 07:01] LABS: INR 1.3; PROTHROMBIN TIME 13.8 sec (9.6-11.0)
[2021-06-04 07:03] LABS: CHLORIDE 100 mEq/L (98-107)
[2021-06-04 07:21] LABS: FOLIC ACID (FOLATE) SERUM 11.4 ng/mL (>5.38)
[2021-06-04] MEDS: SOTALOL HCL 80MG TABLET PO SCH ×2 (08:44→17:00)
[2021-06-04] MEDS: FERROUS SULFATE 325MG TABLET PO SCH ×3 (08:51→17:59)
[2021-06-04] MEDS: FUROSEMIDE 40MG/4ML VIAL IVP SCH (08:51)
[2021-06-04] MEDS: CEFTAZIDIME PENTAHYDRATE 2 G in DEXT 5% WATER 100 ML IV SCH ×2 (08:51→22:10)
[2021-06-04] MEDS: FAMOTIDINE 20MG TABLET PO SCH (08:51)
[2021-06-04] MEDS: HYDROCODONE/ACETAMINOPHEN 5/325MG TABLET PO PRN ×2 (09:05→16:19)
[2021-06-04] MEDS: VANCOMYCIN 750 MG PREMIX 150 ML IV SCH (10:18)
[2021-06-04] MEDS: ENOXAPARIN 40MG/0.4ML SYR SUBCUT SCH (10:19)
[2021-06-04] MEDS: IPRATROPIUM/ALBUTEROL 0.5-3(2.5)MG/3ML NEB HHN SCH ×3 (10:33→21:27)
[2021-06-04 12:37] LABS: PLATELET ESTIMATE NORMAL
[2021-06-04] MEDS: GENTAMICIN 80MG PREMIX 100 ML IV SCH (13:49)
[2021-06-04] MEDS: WARFARIN SODIUM 5MG TABLET PO SCH (17:59)
[2021-06-04] MEDS: BENZONATATE 100MG CAPSULE PO PRN (22:10)
[2021-06-05] VITALS (17 sets, daily range): BP systolic 92–140; BP diastolic 50–87
[2021-06-05] MEDS: ACETAMINOPHEN 325MG TABLET PO PRN (02:47)
[2021-06-05] MEDS: IPRATROPIUM/ALBUTEROL 0.5-3(2.5)MG/3ML NEB HHN SCH ×4 (02:49→20:54)
[2021-06-05] MEDS: VANCOMYCIN 750 MG PREMIX 150 ML IV SCH ×2 (02:55→22:05)
[2021-06-05 06:23] LABS: CHLORIDE 98 mEq/L (98-107)
[2021-06-05 06:30] LABS: INR 1.6
[2021-06-05 06:33] LABS: GENTAMICIN RANDOM 1.2 ug/mL
[2021-06-05] MEDS: FERROUS SULFATE 325MG TABLET PO SCH ×3 (08:49→17:12)
[2021-06-05] MEDS: CEFTAZIDIME PENTAHYDRATE 2 G in DEXT 5% WATER 100 ML IV SCH ×2 (08:49→21:03)
[2021-06-05] MEDS: ENOXAPARIN 40MG/0.4ML SYR SUBCUT SCH (08:49)
[2021-06-05] MEDS: FUROSEMIDE 40MG/4ML VIAL IVP SCH (08:49)
[2021-06-05] MEDS: FAMOTIDINE 20MG TABLET PO SCH (08:49)
[2021-06-05] MEDS: SOTALOL HCL 80MG TABLET PO SCH ×2 (08:50→17:12)
[2021-06-05] MEDS ORDERED: LACTULOSE 20G/30ML UDC PO NR (12:00)
[2021-06-05] MEDS: GENTAMICIN 80MG PREMIX 100 ML IV SCH (13:26)
[2021-06-05] MEDS ORDERED: BISACODYL 10MG SUPP PR SCH (16:45)
[2021-06-05] MEDS: WARFARIN SODIUM 5MG TABLET PO SCH (17:12)
[2021-06-05] MEDS: BENZONATATE 100MG CAPSULE PO PRN (21:03)
[2021-06-05] MEDS: LACTULOSE 20G/30ML UDC PO SCH (22:00)
[2021-06-05] MEDS: HYDROCODONE/ACETAMINOPHEN 5/325MG TABLET PO PRN (22:11)
[2021-06-06] VITALS (10 sets, daily range): BP systolic 96–128; BP diastolic 57–72
[2021-06-06] MEDS: IPRATROPIUM/ALBUTEROL 0.5-3(2.5)MG/3ML NEB HHN SCH ×3 (03:07→12:40)
[2021-06-06] MEDS: FERROUS SULFATE 325MG TABLET PO SCH ×3 (06:09→16:53)
[2021-06-06] MEDS: LACTULOSE 20G/30ML UDC PO SCH ×2 (06:09→13:06)
[2021-06-06 06:13] LABS: HEMATOCRIT. 29.3 % (36.0-48.0); HEMOGLOBIN. 9.5 g/dL (12.0-16.0); MEAN CORPUSCULAR HEMOGLOBIN 29.2 pg (28.0-32.0); MEAN CORPUSCULAR VOLUME 89.7 fL (81.0-99.0); MEAN PLATELET VOLUME 8.2 fl (7.4-10.4); PLATELET 227 x1000/uL (130-400); RED BLOOD CELL COUNT 3.27 mill/uL (4.2-5.4); RED CELL DISTRIBUTION WIDTH 20.3 % (11.6-14.6)
[2021-06-06 06:16] LABS: CHLORIDE 97 mEq/L (98-107); INR 2.4; PROTHROMBIN TIME 23.9 sec (9.6-11.0)
[2021-06-06] MEDS: FUROSEMIDE 40MG/4ML VIAL IVP SCH (08:33)
[2021-06-06] MEDS: FAMOTIDINE 20MG TABLET PO SCH (08:33)
[2021-06-06] MEDS: ENOXAPARIN 40MG/0.4ML SYR SUBCUT SCH (08:33)
[2021-06-06] MEDS: SOTALOL HCL 80MG TABLET PO SCH ×2 (08:33→16:55)
[2021-06-06] MEDS: CEFTAZIDIME PENTAHYDRATE 2 G in DEXT 5% WATER 100 ML IV SCH (08:33)
[2021-06-06] MEDS: HYDROCODONE/ACETAMINOPHEN 5/325MG TABLET PO PRN (09:10)
[2021-06-06 10:24] LABS: PLATELET ESTIMATE NORMAL
[2021-06-06] MEDS: GENTAMICIN 80MG PREMIX 100 ML IV SCH (13:07)
[2021-06-06] MEDS ORDERED: WARFARIN SODIUM 2MG TABLET PO SCH (18:00)
[2021-06-07] MEDS ORDERED: FUROSEMIDE 40MG TABLET PO SCH (09:00)
== END 2021-06-06 17:05 | DRG 853 ==
LOC: ER 04:39 → MICUSO 05:15 → 3WST 05-31 02:01 → CVICU 05-31 10:05 → 6EST 06-02 09:01 → CVICU 06-02 09:07 → 3WST 06-03 06:14
PROVIDERS: ADMIT Internal Medicine Geriatric Medicine; ATTEND Internal Medicine Geriatric Medicine
PROC: 04FL3Z0 Fragmentation of Left Femoral Artery, Percutaneous Approach, Ultrasonic (ICD-10-PCS; 2021-05-30)
PROC: 30233K1 Transfusion of Nonautologous Frozen Plasma into Peripheral Vein, Percutaneous Approach (ICD-10-PCS; 2021-05-30)
PROC: 04QL0ZZ Repair Left Femoral Artery, Open Approach (ICD-10-PCS; principal; 2021-05-31)
PROC: B54MZZA Ultrasonography of Right Upper Extremity Veins, Guidance (ICD-10-PCS; 2021-05-31)
PROC: 04UL0KZ Supplement Left Femoral Artery with Nonautologous Tissue Substitute, Open Approach (ICD-10-PCS; 2021-05-31)
PROC: 05HY33Z Insertion of Infusion Device into Upper Vein, Percutaneous Approach (ICD-10-PCS; 2021-05-31)
PROC: 30233N1 Transfusion of Nonautologous Red Blood Cells into Peripheral Vein, Percutaneous Approach (ICD-10-PCS; 2021-05-31)
DX: A41.9 Sepsis, unspecified organism (principal); E43 Unspecified severe protein-calorie malnutrition; I50.23 Acute on chronic systolic (congestive) heart failure; J18.9 Pneumonia, unspecified organism; R57.8 Other shock; D68.9 Coagulation defect, unspecified; E87.1 Hypo-osmolality and hyponatremia; E87.2 Acidosis; G93.40 Encephalopathy, unspecified; I13.0 Hypertensive heart and chronic kidney disease with heart failure and stage 1 through stage 4 chronic kidney disease, or unspecified chronic kidney disease; I48.20 Chronic atrial fibrillation, unspecified; J44.0 Chronic obstructive pulmonary disease with (acute) lower respiratory infection; K80.01 Calculus of gallbladder with acute cholecystitis with obstruction; Z68.1 Body mass index [BMI] 19.9 or less, adult; G62.81 Critical illness polyneuropathy; I72.4 Aneurysm of artery of lower extremity; D50.9 Iron deficiency anemia, unspecified; F41.1 Generalized anxiety disorder; G89.29 Other chronic pain; N18.9 Chronic kidney disease, unspecified; I73.9 Peripheral vascular disease, unspecified; K59.00 Constipation, unspecified; S30.1XXA Contusion of abdominal wall, initial encounter; R94.6 Abnormal results of thyroid function studies; M19.90 Unspecified osteoarthritis, unspecified site; R26.9 Unspecified abnormalities of gait and mobility; Z20.822 Contact with and (suspected) exposure to COVID-19; X58.XXXA Exposure to other specified factors, initial encounter; I34.0 Nonrheumatic mitral (valve) insufficiency; I35.1 Nonrheumatic aortic (valve) insufficiency; I36.1 Nonrheumatic tricuspid (valve) insufficiency; Z79.01 Long term (current) use of anticoagulants; Z95.2 Presence of prosthetic heart valve; Z88.8 Allergy status to other drugs, medicaments and biological substances; Z79.899 Other long term (current) drug therapy; Y93.89 Activity, other specified; Y92.89 Other specified places as the place of occurrence of the external cause; Y99.8 Other external cause status; R00.0 Tachycardia, unspecified
CPT/HCPCS: 20611; 36002; 36415; 36600; 71045; 74018; 74177; 76857; 76937; 78227; 80048; 80053; 80076; 80170; 80202; 81003; 82140; 82375; 82607; 82728; 82746; 82805; 83540; 83550; 83605; 83735; 83880; 83930; 84100; 84145; 84439; 84443; 84484; 85025; 85044; 86038; 86160; 86705; 86709; 86803; 86850; 86900; 86920; 86927; 87077; 87186; 87340; 87426; 93005; 93306; 94640; 97162; 97166; 97530; 99291; A6261; A9537; C1725; C1884; J0278; J0610; J0690; J0713; J1100; J1170; J1580; J1644; J1650; J1940; J2185; J2543; J3370; J3430; J3490; J7030; J7042; J7050; J7060; P9016; P9017; P9021; P9047; Q9967; U0003; U0005

== ENCOUNTER 2021-06-06 17:05 | Inpatient (IN) | payer MEDICARE, OTHER ==
[~2021-06-06] VITALS: Ht 152.4 cm; Wt 42.2 kg
[2021-06-06 19:30] VITALS: BP 101/57
[2021-06-06 20:00] VITALS: BP 101/57
[2021-06-06] MEDS ORDERED: BENZONATATE 100MG CAPSULE PO PRN (20:15)
[2021-06-06] MEDS ORDERED: NITROGLYCERIN 0.4MG TABLET SL SL PRN (20:15)
[2021-06-06] MEDS ORDERED: NALOXONE HCL 0.4 MG/ML 1ML VIAL IV PRN (20:15)
[2021-06-06] MEDS ORDERED: WARFARIN SODIUM 2MG TABLET PO NR (21:00)
[2021-06-06] MEDS: LACTULOSE 20G/30ML UDC PO SCH (22:00)
[2021-06-06] MEDS: CEFTAZIDIME PENTAHYDRATE 2 G in DEXT 5% WATER 100 ML IV SCH (22:51)
[2021-06-07] MEDS: IPRATROPIUM/ALBUTEROL 0.5-3(2.5)MG/3ML NEB HHN SCH ×4 (00:46→19:50)
[2021-06-07] MEDS: LACTULOSE 20G/30ML UDC PO SCH ×3 (05:40→21:23)
[2021-06-07 07:38] LABS: INR 2.2; PROTHROMBIN TIME 22.6 sec (9.6-11.0)
[2021-06-07 07:43] LABS: HEMATOCRIT 30.1 % (36.0-48.0); MEAN CORPUSCULAR HEMOGLOBIN 29.4 pg (28.0-32.0); MEAN CORPUSCULAR VOLUME 88.3 fL (81.0-99.0); PLATELET 272 x1000/uL (130-400); RED CELL DISTRIBUTION WIDTH 20.1 % (11.6-14.6)
[2021-06-07 07:49] LABS: CHLORIDE 98 mEq/L (98-107)
[2021-06-07 07:59] LABS: TOTAL IRON BINDING CAPACITY 345 ug/dL (250-450)
[2021-06-07 08:01] VITALS: BP 120/57
[2021-06-07 08:16] LABS: FERRITIN 72 ng/mL (10-291)
[2021-06-07] MEDS: ACETAMINOPHEN 325MG TABLET PO PRN ×2 (08:19→22:13)
[2021-06-07] MEDS: FUROSEMIDE 40MG TABLET PO SCH (08:20)
[2021-06-07] MEDS: FERROUS SULFATE 325MG TABLET PO SCH ×3 (08:20→16:42)
[2021-06-07] MEDS: FAMOTIDINE 20MG TABLET PO SCH (08:20)
[2021-06-07] MEDS: CEFTAZIDIME PENTAHYDRATE 2 G in DEXT 5% WATER 100 ML IV SCH ×2 (08:20→20:17)
[2021-06-07] MEDS: SOTALOL HCL 80MG TABLET PO SCH ×2 (08:20→16:43)
[2021-06-07 08:28] LABS: VITAMIN B12 SERUM 1833 pg/mL (211-911)
[2021-06-07] MEDS ORDERED: ENOXAPARIN 40MG/0.4ML SYR SUBCUT SCH (09:00)
[2021-06-07] MEDS ORDERED: IOHEXOL-350 100 ML BOTTLE ONE ×2 (09:39→13:01)
[2021-06-07] MEDS ORDERED: INFLUENZA VACCINE 05/PF 0.5 ML SYRINGE IM ONE (10:00)
[2021-06-07] MEDS ORDERED: GENTAMICIN 80MG PREMIX 100 ML IV SCH (14:00)
[2021-06-07] MEDS: WARFARIN SODIUM 2MG TABLET PO SCH (17:11)
[2021-06-07 20:00] VITALS: BP 107/58
[2021-06-08] MEDS: LACTULOSE 20G/30ML UDC PO SCH ×3 (06:23→22:00)
[2021-06-08 06:37] LABS: HEMATOCRIT 28.8 % (36.0-48.0); HEMOGLOBIN 9.5 g/dL (12.0-16.0); MEAN CORPUSCULAR HEMOGLOBIN 29.6 pg (28.0-32.0); MEAN CORPUSCULAR VOLUME 89.4 fL (81.0-99.0); PLATELET 278 x1000/uL (130-400); RED BLOOD CELL COUNT 3.21 mill/uL (4.2-5.4); RED CELL DISTRIBUTION WIDTH 21.1 % (11.6-14.6)
[2021-06-08 06:44] LABS: INR 2.6; PROTHROMBIN TIME 25.9 sec (9.6-11.0)
[2021-06-08 07:47] VITALS: BP 116/60
[2021-06-08] MEDS: IPRATROPIUM/ALBUTEROL 0.5-3(2.5)MG/3ML NEB HHN SCH ×3 (08:10→22:13)
[2021-06-08] MEDS: SOTALOL HCL 80MG TABLET PO SCH ×2 (08:56→17:14)
[2021-06-08] MEDS: FAMOTIDINE 20MG TABLET PO SCH (08:56)
[2021-06-08] MEDS: ACETAMINOPHEN 325MG TABLET PO PRN (08:56)
[2021-06-08] MEDS: FERROUS SULFATE 325MG TABLET PO SCH ×3 (08:56→17:11)
[2021-06-08] MEDS: FUROSEMIDE 40MG TABLET PO SCH (08:56)
[2021-06-08] MEDS: CEFTAZIDIME PENTAHYDRATE 2 G in DEXT 5% WATER 100 ML IV SCH ×2 (08:58→21:19)
[2021-06-08] MEDS ORDERED: NA PHOS,M-B/NA PHOS,DI-BA ENEMA 118ML PR SCH (13:15)
[2021-06-08] MEDS: ACYCLOVIR 200MG CAPSULE PO SCH ×3 (15:17→21:19)
[2021-06-08] MEDS: WARFARIN SODIUM 2MG TABLET PO SCH (17:14)
[2021-06-08] MEDS ORDERED: SORBITOL 70% SOLN 30ML PO NR (17:30)
[2021-06-08] MEDS ORDERED: NA PHOS,M-B/NA PHOS,DI-BA ENEMA 118ML PR NR (17:30)
[2021-06-08 20:00] VITALS: BP 128/61
[2021-06-09] MEDS: HYDROCODONE/ACETAMINOPHEN 5/325MG TABLET PO PRN ×2 (02:06→08:59)
[2021-06-09] MEDS: IPRATROPIUM/ALBUTEROL 0.5-3(2.5)MG/3ML NEB HHN SCH ×3 (02:30→18:00)
[2021-06-09] MEDS: LACTULOSE 20G/30ML UDC PO SCH ×3 (05:46→21:00)
[2021-06-09] MEDS: ACYCLOVIR 200MG CAPSULE PO SCH ×5 (05:46→20:58)
[2021-06-09 07:10] LABS: HEMATOCRIT 33.4 % (36.0-48.0); HEMOGLOBIN 10.7 g/dL (12.0-16.0); MEAN CORPUSCULAR HEMOGLOBIN 29.5 pg (28.0-32.0); MEAN CORPUSCULAR VOLUME 92.4 fL (81.0-99.0); PLATELET 290 x1000/uL (130-400); RED BLOOD CELL COUNT 3.61 mill/uL (4.2-5.4); RED CELL DISTRIBUTION WIDTH 21.2 % (11.6-14.6)
[2021-06-09 07:19] LABS: INR 2.3; PROTHROMBIN TIME 23.5 sec (9.6-11.0)
[2021-06-09 07:29] LABS: CHLORIDE 101 mEq/L (98-107)
[2021-06-09 07:47] VITALS: BP 124/73
[2021-06-09 08:06] LABS: GENTAMICIN RANDOM < 0.2 ug/mL
[2021-06-09] MEDS: CEFTAZIDIME PENTAHYDRATE 2 G in DEXT 5% WATER 100 ML IV SCH ×2 (08:57→20:59)
[2021-06-09] MEDS: SOTALOL HCL 80MG TABLET PO SCH ×2 (08:58→17:18)
[2021-06-09] MEDS: FUROSEMIDE 40MG TABLET PO SCH (08:58)
[2021-06-09] MEDS: FERROUS SULFATE 325MG TABLET PO SCH ×3 (08:58→17:18)
[2021-06-09] MEDS: FAMOTIDINE 20MG TABLET PO SCH (08:58)
[2021-06-09] MEDS: DIPHENHYDRAMINE HCL/ZINC ACET 28 GM CREAM TOP SCH ×2 (14:30→17:00)
[2021-06-09] MEDS: WARFARIN SODIUM 4MG TABLET PO SCH (17:19)
[2021-06-09] MEDS: ACETAMINOPHEN 325MG TABLET PO PRN (18:47)
[2021-06-09 20:00] VITALS: BP 123/59
[2021-06-10] MEDS: LACTULOSE 20G/30ML UDC PO SCH ×3 (05:20→21:04)
[2021-06-10] MEDS: ACYCLOVIR 200MG CAPSULE PO SCH ×5 (06:18→21:43)
[2021-06-10 07:04] LABS: INR 2.3; PROTHROMBIN TIME 23.5 sec (9.6-11.0)
[2021-06-10] MEDS: IPRATROPIUM/ALBUTEROL 0.5-3(2.5)MG/3ML NEB HHN SCH ×3 (07:50→14:10)
[2021-06-10 08:10] VITALS: BP 111/61
[2021-06-10] MEDS: HYDROCODONE/ACETAMINOPHEN 5/325MG TABLET PO PRN (08:53)
[2021-06-10] MEDS: CEFTAZIDIME PENTAHYDRATE 2 G in DEXT 5% WATER 100 ML IV SCH ×2 (08:54→21:43)
[2021-06-10] MEDS: FAMOTIDINE 20MG TABLET PO SCH (08:54)
[2021-06-10] MEDS: FUROSEMIDE 40MG TABLET PO SCH (08:54)
[2021-06-10] MEDS: SOTALOL HCL 80MG TABLET PO SCH ×2 (08:54→17:13)
[2021-06-10] MEDS: FERROUS SULFATE 325MG TABLET PO SCH ×3 (08:54→17:13)
[2021-06-10] MEDS: DIPHENHYDRAMINE HCL/ZINC ACET 28 GM CREAM TOP SCH ×3 (08:54→17:00)
[2021-06-10] MEDS ORDERED: SODIUM CHLORIDE 45ML SPRAY NS PRN (13:30)
[2021-06-10] MEDS: WARFARIN SODIUM 4MG TABLET PO SCH (17:13)
[2021-06-10 20:00] VITALS: BP 105/61
[2021-06-11] MEDS: IPRATROPIUM/ALBUTEROL 0.5-3(2.5)MG/3ML NEB HHN SCH ×4 (02:41→20:17)
[2021-06-11] MEDS: LACTULOSE 20G/30ML UDC PO SCH ×3 (05:49→21:58)
[2021-06-11] MEDS: ACYCLOVIR 200MG CAPSULE PO SCH ×5 (05:49→21:31)
[2021-06-11 07:05] LABS: INR 2.5; PROTHROMBIN TIME 25.2 sec (9.6-11.0)
[2021-06-11 08:00] VITALS: BP 116/62
[2021-06-11] MEDS: FUROSEMIDE 40MG TABLET PO SCH (08:47)
[2021-06-11] MEDS: FERROUS SULFATE 325MG TABLET PO SCH ×3 (08:47→17:18)
[2021-06-11] MEDS: FAMOTIDINE 20MG TABLET PO SCH (08:47)
[2021-06-11] MEDS: SOTALOL HCL 80MG TABLET PO SCH ×2 (08:48→17:17)
[2021-06-11] MEDS: DIPHENHYDRAMINE HCL/ZINC ACET 28 GM CREAM TOP SCH ×3 (08:48→16:47)
[2021-06-11] MEDS: CEFTAZIDIME PENTAHYDRATE 2 G in DEXT 5% WATER 100 ML IV SCH ×2 (08:48→21:30)
[2021-06-11] MEDS: ACETAMINOPHEN 325MG TABLET PO PRN (09:08)
[2021-06-11] MEDS ORDERED: ACETAMINOPHEN 325MG TABLET PO PRN (09:15)
[2021-06-11 13:23] LABS: CLARITY URINE CLEAR (CLEAR); COLOR URINE YELLOW (YELLOW); KETONES URINE NEGATIVE (NEGATIVE); LEUKOCYTE ESTERASE URINE NEGATIVE (NEGATIVE); NITRITE URINE NEGATIVE (NEGATIVE); OCCULT BLOOD URINE TRACE (NEGATIVE); PROTEIN URINE NEGATIVE (NEGATIVE); SPECIFIC GRAVITY URINE 1.004 (1.005-1.030); UROBILINOGEN URINE 0.2 E.U./dL (0.2-1.0)
[2021-06-11] MEDS: WARFARIN SODIUM 4MG TABLET PO SCH (17:18)
[2021-06-11 20:00] VITALS: BP 105/64
[2021-06-11] MEDS: TYLENOL 650 MG XX SCH (21:30)
[2021-06-12] MEDS ORDERED: HYDROCODONE/ACETAMINOPHEN 5/325MG TABLET PO PRN (01:00)
[2021-06-12] MEDS: IPRATROPIUM/ALBUTEROL 0.5-3(2.5)MG/3ML NEB HHN SCH ×2 (02:49→20:00)
[2021-06-12] MEDS: ACYCLOVIR 200MG CAPSULE PO SCH ×5 (05:06→21:05)
[2021-06-12] MEDS: LACTULOSE 20G/30ML UDC PO SCH ×4 (05:06→22:00)
[2021-06-12 07:08] LABS: HEMOGLOBIN. 9.4 g/dL (12.0-16.0); MEAN CORPUSCULAR VOLUME 92.5 fL (81.0-99.0); MEAN PLATELET VOLUME 8.2 fl (7.4-10.4); PLATELET 236 x1000/uL (130-400); RED BLOOD CELL COUNT 3.14 mill/uL (4.2-5.4); RED CELL DISTRIBUTION WIDTH 21.6 % (11.6-14.6)
[2021-06-12 07:09] LABS: CHLORIDE 104 mEq/L (98-107)
[2021-06-12 07:56] VITALS: BP 132/77
[2021-06-12] MEDS: TYLENOL 650 MG XX SCH ×2 (07:57→21:04)
[2021-06-12] MEDS: FERROUS SULFATE 325MG TABLET PO SCH ×3 (09:01→17:51)
[2021-06-12] MEDS: FAMOTIDINE 20MG TABLET PO SCH (09:01)
[2021-06-12] MEDS: FUROSEMIDE 40MG TABLET PO SCH (09:01)
[2021-06-12] MEDS: SOTALOL HCL 80MG TABLET PO SCH ×2 (09:01→17:55)
[2021-06-12] MEDS: CEFTAZIDIME PENTAHYDRATE 2 G in DEXT 5% WATER 100 ML IV SCH ×2 (09:02→21:04)
[2021-06-12] MEDS: DIPHENHYDRAMINE HCL/ZINC ACET 28 GM CREAM TOP SCH ×3 (09:11→17:00)
[2021-06-12 10:53] LABS: PROTHROMBIN TIME 29.6 sec (9.6-11.0)
[2021-06-12 17:53] LABS: PLATELET ESTIMATE NORMAL
[2021-06-12] MEDS ORDERED: WARFARIN SODIUM 3MG TABLET PO SCH (18:00)
[2021-06-12 20:00] VITALS: BP 123/70
[2021-06-13] MEDS: IPRATROPIUM/ALBUTEROL 0.5-3(2.5)MG/3ML NEB HHN SCH ×4 (01:24→20:20)
[2021-06-13] MEDS: LACTULOSE 20G/30ML UDC PO SCH ×3 (06:00→21:09)
[2021-06-13] MEDS: ACYCLOVIR 200MG CAPSULE PO SCH ×5 (06:02→21:10)
[2021-06-13] MEDS: TYLENOL 650 MG XX SCH ×3 (06:37→21:09)
[2021-06-13 07:26] LABS: PROTHROMBIN TIME 38.7 sec (9.6-11.0)
[2021-06-13 08:00] VITALS: BP 143/66
[2021-06-13] MEDS: CEFTAZIDIME PENTAHYDRATE 2 G in DEXT 5% WATER 100 ML IV SCH ×2 (08:56→21:08)
[2021-06-13] MEDS: FUROSEMIDE 40MG TABLET PO SCH (08:56)
[2021-06-13] MEDS: FERROUS SULFATE 325MG TABLET PO SCH ×3 (08:57→16:00)
[2021-06-13] MEDS: FAMOTIDINE 20MG TABLET PO SCH (08:57)
[2021-06-13] MEDS: SOTALOL HCL 80MG TABLET PO SCH ×2 (08:57→16:00)
[2021-06-13] MEDS: DIPHENHYDRAMINE HCL/ZINC ACET 28 GM CREAM TOP SCH ×3 (08:57→16:00)
[2021-06-13 15:09] LABS: 25-HYDROXY VITAMIN D3 29 ng/mL (.)
[2021-06-13] MEDS: ERGOCALCIFEROL 50000UNITS CAPSULE PO SCH (15:56)
[2021-06-13 20:00] VITALS: BP 141/66
[2021-06-14] MEDS: IPRATROPIUM/ALBUTEROL 0.5-3(2.5)MG/3ML NEB HHN SCH ×3 (00:30→11:42)
[2021-06-14] MEDS: LACTULOSE 20G/30ML UDC PO SCH ×3 (05:05→21:42)
[2021-06-14 07:21] LABS: INR 3.2; PROTHROMBIN TIME 31.2 sec (9.6-11.0)
[2021-06-14 08:00] VITALS: BP 118/57
[2021-06-14] MEDS: TYLENOL 650 MG XX SCH ×2 (08:00→21:00)
[2021-06-14] MEDS: DIPHENHYDRAMINE HCL/ZINC ACET 28 GM CREAM TOP SCH ×3 (09:00→17:00)
[2021-06-14] MEDS: FAMOTIDINE 20MG TABLET PO SCH (09:12)
[2021-06-14] MEDS: FUROSEMIDE 40MG TABLET PO SCH (09:12)
[2021-06-14] MEDS: SOTALOL HCL 80MG TABLET PO SCH ×2 (09:12→17:24)
[2021-06-14] MEDS: FERROUS SULFATE 325MG TABLET PO SCH ×3 (09:13→17:23)
[2021-06-14] MEDS ORDERED: WARFARIN SODIUM 1MG TABLET PO SCH (18:00)
[2021-06-14 20:00] VITALS: BP 137/68
[2021-06-15] MEDS: IPRATROPIUM/ALBUTEROL 0.5-3(2.5)MG/3ML NEB HHN SCH ×2 (02:26→10:10)
[2021-06-15] MEDS: LACTULOSE 20G/30ML UDC PO SCH ×3 (06:00→20:53)
[2021-06-15 08:00] VITALS: BP 128/66
[2021-06-15 09:05] LABS: INR 1.9; PROTHROMBIN TIME 19.3 sec (9.6-11.0)
[2021-06-15] MEDS: SOTALOL HCL 80MG TABLET PO SCH ×2 (09:27→17:19)
[2021-06-15] MEDS: FERROUS SULFATE 325MG TABLET PO SCH ×3 (09:27→17:19)
[2021-06-15] MEDS: FAMOTIDINE 20MG TABLET PO SCH (09:27)
[2021-06-15] MEDS: FUROSEMIDE 40MG TABLET PO SCH (09:27)
[2021-06-15] MEDS: TYLENOL 650 MG XX SCH ×2 (09:28→20:55)
[2021-06-15] MEDS: DIPHENHYDRAMINE HCL/ZINC ACET 28 GM CREAM TOP SCH ×3 (09:28→17:18)
[2021-06-15] MEDS ORDERED: WARFARIN SODIUM 4MG TABLET PO NR (18:00)
[2021-06-15 20:00] VITALS: BP 122/69
[2021-06-16] MEDS: LACTULOSE 20G/30ML UDC PO SCH ×3 (06:00→21:06)
[2021-06-16 07:34] LABS: HEMATOCRIT. 27.6 % (36.0-48.0); MEAN CORPUSCULAR HEMOGLOBIN 30.5 pg (28.0-32.0); MEAN CORPUSCULAR VOLUME 93.6 fL (81.0-99.0); MEAN PLATELET VOLUME 8.2 fl (7.4-10.4); PLATELET 184 x1000/uL (130-400); RED BLOOD CELL COUNT 2.94 mill/uL (4.2-5.4); RED CELL DISTRIBUTION WIDTH 24.3 % (11.6-14.6)
[2021-06-16 07:37] LABS: INR 1.5; PROTHROMBIN TIME 15.9 sec (9.6-11.0)
[2021-06-16] MEDS: IPRATROPIUM/ALBUTEROL 0.5-3(2.5)MG/3ML NEB HHN SCH ×3 (07:40→21:40)
[2021-06-16 07:42] VITALS: BP 126/62
[2021-06-16] MEDS: SOTALOL HCL 80MG TABLET PO SCH ×2 (08:55→17:17)
[2021-06-16] MEDS: DIPHENHYDRAMINE HCL/ZINC ACET 28 GM CREAM TOP SCH ×3 (08:55→17:16)
[2021-06-16] MEDS: FUROSEMIDE 40MG TABLET PO SCH (08:55)
[2021-06-16] MEDS: FAMOTIDINE 20MG TABLET PO SCH (08:55)
[2021-06-16] MEDS: TYLENOL 650 MG XX SCH ×2 (08:55→21:07)
[2021-06-16] MEDS: FERROUS SULFATE 325MG TABLET PO SCH ×3 (08:56→17:13)
[2021-06-16 12:43] LABS: CHLORIDE 110 mEq/L (98-107)
[2021-06-16] MEDS: ENOXAPARIN 40MG/0.4ML SYR SUBCUT SCH (13:53)
[2021-06-16 17:13] LABS: PLATELET ESTIMATE NORMAL
[2021-06-16] MEDS: WARFARIN SODIUM 4MG TABLET PO SCH (17:14)
[2021-06-16 17:17] VITALS: BP 122/70
[2021-06-16] MEDS ORDERED: NALOXONE HCL 0.4MG/ML VIAL IV PRN (17:30)
[2021-06-16 20:00] VITALS: BP 129/68
[2021-06-17] MEDS: LACTULOSE 20G/30ML UDC PO SCH ×3 (05:06→21:19)
[2021-06-17 07:16] LABS: INR 1.7; PROTHROMBIN TIME 17.8 sec (9.6-11.0)
[2021-06-17] MEDS: IPRATROPIUM/ALBUTEROL 0.5-3(2.5)MG/3ML NEB HHN SCH ×3 (07:40→21:15)
[2021-06-17 08:20] VITALS: BP 118/65
[2021-06-17] MEDS: SOTALOL HCL 80MG TABLET PO SCH ×2 (08:28→17:02)
[2021-06-17] MEDS: ENOXAPARIN 40MG/0.4ML SYR SUBCUT SCH (08:28)
[2021-06-17] MEDS: FERROUS SULFATE 325MG TABLET PO SCH ×3 (08:29→17:01)
[2021-06-17] MEDS: FUROSEMIDE 40MG TABLET PO SCH (08:29)
[2021-06-17] MEDS: TYLENOL 650 MG XX SCH ×2 (08:29→21:19)
[2021-06-17] MEDS: FAMOTIDINE 20MG TABLET PO SCH (08:29)
[2021-06-17] MEDS: DIPHENHYDRAMINE HCL/ZINC ACET 28 GM CREAM TOP SCH ×3 (08:29→17:00)
[2021-06-17] MEDS: LIDOCAINE 5% PATCH TOP SCH ×2 (10:00→10:14)
[2021-06-17] MEDS: WARFARIN SODIUM 4MG TABLET PO SCH (17:01)
[2021-06-17 20:00] VITALS: BP_SYST 113; BP_SYST 155; BP_DIAS 63; BP_DIAS 81
[2021-06-18] MEDS: IPRATROPIUM/ALBUTEROL 0.5-3(2.5)MG/3ML NEB HHN SCH ×3 (02:34→12:08)
[2021-06-18] MEDS: LACTULOSE 20G/30ML UDC PO SCH ×3 (05:51→21:05)
[2021-06-18 06:49] LABS: HEMATOCRIT. 30.3 % (36.0-48.0); MEAN CORPUSCULAR HEMOGLOBIN 31.5 pg (28.0-32.0); MEAN CORPUSCULAR VOLUME 95.6 fL (81.0-99.0); MEAN PLATELET VOLUME 8.3 fl (7.4-10.4); PLATELET 156 x1000/uL (130-400); RED BLOOD CELL COUNT 3.17 mill/uL (4.2-5.4); RED CELL DISTRIBUTION WIDTH 24.8 % (11.6-14.6)
[2021-06-18 06:57] LABS: INR 2.1; PROTHROMBIN TIME 20.9 sec (9.6-11.0)
[2021-06-18 07:06] LABS: CHLORIDE 107 mEq/L (98-107)
[2021-06-18 08:00] VITALS: BP 104/66
[2021-06-18] MEDS: SOTALOL HCL 80MG TABLET PO SCH ×2 (09:00→17:44)
[2021-06-18] MEDS: DIPHENHYDRAMINE HCL/ZINC ACET 28 GM CREAM TOP SCH ×2 (09:00→12:26)
[2021-06-18] MEDS: TYLENOL 650 MG XX SCH ×2 (09:03→21:06)
[2021-06-18] MEDS: LIDOCAINE 5% PATCH TOP SCH ×2 (09:04)
[2021-06-18] MEDS: FERROUS SULFATE 325MG TABLET PO SCH ×3 (09:04→17:43)
[2021-06-18] MEDS: FUROSEMIDE 40MG TABLET PO SCH (09:04)
[2021-06-18] MEDS: FAMOTIDINE 20MG TABLET PO SCH (09:04)
[2021-06-18] MEDS: ENOXAPARIN 40MG/0.4ML SYR SUBCUT SCH (09:04)
[2021-06-18 17:01] LABS: PLATELET ESTIMATE NORMAL
[2021-06-18] MEDS ORDERED: WARFARIN SODIUM 4MG TABLET PO SCH (18:00)
[2021-06-18 20:00] VITALS: BP 115/62
[2021-06-19] MEDS: LACTULOSE 20G/30ML UDC PO SCH (05:47)
[2021-06-19 07:16] LABS: INR 2.7; PROTHROMBIN TIME 26.6 sec (9.6-11.0)
[2021-06-19 07:29] LABS: HEMATOCRIT. 30.4 % (36.0-48.0); HEMOGLOBIN. 9.9 g/dL (12.0-16.0); MEAN PLATELET VOLUME 8.1 fl (7.4-10.4); PLATELET 150 x1000/uL (130-400); RED CELL DISTRIBUTION WIDTH 24.1 % (11.6-14.6)
[2021-06-19 08:00] VITALS: BP 144/75
[2021-06-19 08:03] LABS: CHLORIDE 107 mEq/L (98-107)
[2021-06-19] MEDS: FERROUS SULFATE 325MG TABLET PO SCH ×3 (08:17→17:25)
[2021-06-19] MEDS: FAMOTIDINE 20MG TABLET PO SCH (08:17)
[2021-06-19] MEDS: TYLENOL 650 MG XX SCH ×2 (08:17→20:04)
[2021-06-19] MEDS: FUROSEMIDE 40MG TABLET PO SCH (08:17)
[2021-06-19] MEDS: LIDOCAINE 5% PATCH TOP SCH ×2 (08:18→08:19)
[2021-06-19] MEDS: SOTALOL HCL 80MG TABLET PO SCH ×2 (08:18→17:25)
[2021-06-19] MEDS: IPRATROPIUM/ALBUTEROL 0.5-3(2.5)MG/3ML NEB HHN SCH ×4 (09:47→20:45)
[2021-06-19 10:41] LABS: PLATELET ESTIMATE NORMAL
[2021-06-19] MEDS ORDERED: ONDANSETRON HCL 4MG/2ML INJ IV PRN (11:15)
[2021-06-19] MEDS: MEGESTROL ACETATE 400 MG/10 ML UDC PO SCH (12:10)
[2021-06-19] MEDS: DOCUSATE SODIUM 100MG CAPSULE PO SCH (12:10)
[2021-06-19] MEDS ORDERED: WARFARIN SODIUM 2.5MG TABLET PO SCH (18:00)
[2021-06-19 20:00] VITALS: BP 133/71
[2021-06-19] MEDS ORDERED: LACTULOSE 20G/30ML UDC PO SCH (21:00)
[2021-06-20] MEDS ORDERED: OMEPRAZOLE 20MG CAPSULE EXTENDED RELEASE PO SCH (07:00)
[2021-06-20] MEDS: IPRATROPIUM/ALBUTEROL 0.5-3(2.5)MG/3ML NEB HHN SCH ×2 (07:19→11:48)
[2021-06-20 08:00] VITALS: BP 115/56
[2021-06-20] MEDS: MEGESTROL ACETATE 400 MG/10 ML UDC PO SCH (08:50)
[2021-06-20] MEDS: FERROUS SULFATE 325MG TABLET PO SCH ×2 (08:50→13:26)
[2021-06-20] MEDS: SOTALOL HCL 80MG TABLET PO SCH (08:50)
[2021-06-20] MEDS: FUROSEMIDE 40MG TABLET PO SCH (08:50)
[2021-06-20] MEDS: ERGOCALCIFEROL 50000UNITS CAPSULE PO SCH (08:50)
[2021-06-20] MEDS: LIDOCAINE 5% PATCH TOP SCH ×2 (08:54→08:57)
[2021-06-20] MEDS ORDERED: POLYETHYLENE GLYCOL 3350 (17GM) 1 DOSE PACK PO SCH (09:00)
[2021-06-20] MEDS ORDERED: LIDO700A30 TOP (09:28)
[2021-06-20] MEDS ORDERED: FURO40TA5 PO (09:28)
[2021-06-20] MEDS ORDERED: IPRA3AMP9 HHN (09:28)
[2021-06-20] MEDS ORDERED: FERR-63 PO (09:28)
[2021-06-20] MEDS ORDERED: SOTA80TA25 PO (09:28)
[2021-06-20] MEDS ORDERED: TOPUD PO (09:28)
[2021-06-20] MEDS ORDERED: LACT10SO7 PO (09:28)
[2021-06-20] MEDS ORDERED: NITR0.4T49 SL ×3 (09:28→09:39)
[2021-06-20] MEDS ORDERED: DOCU-150 PO (09:28)
[2021-06-20] MEDS: TYLENOL 650 MG XX SCH (09:46)
[2021-06-20 10:53] VITALS: BP 115/53
[2021-06-20 11:30] LABS: INR 2.6; PROTHROMBIN TIME 25.8 sec (9.6-11.0)
[2021-06-20] MEDS: DOCUSATE SODIUM 100MG CAPSULE PO SCH (13:26)
== END 2021-06-20 17:01 | disposition home health service (06) | DRG 73 ==
PROVIDERS: ADMIT Physical Medicine & Rehabilitation Spinal Cord Injury Medicine; ATTEND Internal Medicine Geriatric Medicine
DX: G62.81 Critical illness polyneuropathy (principal); E43 Unspecified severe protein-calorie malnutrition; I50.23 Acute on chronic systolic (congestive) heart failure; J18.9 Pneumonia, unspecified organism; A41.52 Sepsis due to Pseudomonas; R57.8 Other shock; D68.9 Coagulation defect, unspecified; E87.1 Hypo-osmolality and hyponatremia; E87.2 Acidosis; G93.40 Encephalopathy, unspecified; I13.0 Hypertensive heart and chronic kidney disease with heart failure and stage 1 through stage 4 chronic kidney disease, or unspecified chronic kidney disease; B00.2 Herpesviral gingivostomatitis and pharyngotonsillitis; I48.19 Other persistent atrial fibrillation; J44.0 Chronic obstructive pulmonary disease with (acute) lower respiratory infection; K80.00 Calculus of gallbladder with acute cholecystitis without obstruction; N17.9 Acute kidney failure, unspecified; L03.115 Cellulitis of right lower limb; T81.30XA Disruption of wound, unspecified, initial encounter; Z68.1 Body mass index [BMI] 19.9 or less, adult; D50.9 Iron deficiency anemia, unspecified; F41.1 Generalized anxiety disorder; I25.10 Atherosclerotic heart disease of native coronary artery without angina pectoris; E55.9 Vitamin D deficiency, unspecified; F39 Unspecified mood [affective] disorder; I08.3 Combined rheumatic disorders of mitral, aortic and tricuspid valves; I72.4 Aneurysm of artery of lower extremity; K59.00 Constipation, unspecified; N18.1 Chronic kidney disease, stage 1; R53.81 Other malaise; R26.9 Unspecified abnormalities of gait and mobility; K57.30 Diverticulosis of large intestine without perforation or abscess without bleeding; Y83.8 Other surgical procedures as the cause of abnormal reaction of the patient, or of later complication, without mention of misadventure at the time of the procedure; I73.9 Peripheral vascular disease, unspecified; L29.9 Pruritus, unspecified; Z95.2 Presence of prosthetic heart valve; Z79.01 Long term (current) use of anticoagulants; Z79.899 Other long term (current) drug therapy; Z82.49 Family history of ischemic heart disease and other diseases of the circulatory system; Y92.89 Other specified places as the place of occurrence of the external cause
CPT/HCPCS: 36415; 72191; 73706; 74174; 76700; 80048; 80053; 80076; 80170; 81003; 82248; 82306; 82607; 82728; 83540; 83550; 83735; 84134; 84443; 85025; 85027; 87070; 87077; 87186; 90686; 93005; 93970; 94640; 97110; 97116; 97163; 97166; 97530; 97535; J0713; J1580; J1650; J2405; J7040; J7060; Q9967